=== PATIENT | male | born 1980 | race Caucasian/White ===

== ENCOUNTER → 2019-01-25 22:19 | Outpatient (CLI) | payer BC, OTHER, SELFPAY ==
[2019-01-25 16:39] VITALS: BMI 29.5
[2019-01-25 23:20] LABS: Rheumatoid Factor < 10.0 IU/mL (<15); Thyroid Stim Hormone (TSH) 1.51 uIU/mL (0.358-3.74)
[2019-02-01 03:06] LABS: Beef <0.10 kU/L (Class 0); Chocolate 0.31 kU/L (Class 0/I); Corn 1.89 kU/L (Class III); Egg, Whole <0.10 kU/L (Class 0); Milk (Cow) <0.10 kU/L (Class 0); Peanut 2.27 kU/L (Class III); Pork <0.10 kU/L (Class 0); Soybean 2.04 kU/L (Class III); Wheat 1.98 kU/L (Class III)
[2019-02-01 11:09] LABS: ANTINUCLEAR ANTIBODIES DIRECT Negative (Negative)
== END ==
PROVIDERS: Visit Provider Nurse Practitioner
DX: L40.9 Psoriasis, unspecified (principal); B35.3 Tinea pedis; K90.49 Malabsorption due to intolerance, not elsewhere classified
CPT/HCPCS: 84443; 86003; 86005; 86038; 86225; 86235; 86431

== ENCOUNTER → 2019-12-04 | Outpatient (CLI) | payer BC, OTHER, SELFPAY ==
[2019-12-04 14:13] VITALS: BMI 29.5
[2019-12-08 11:33] LABS: Testosterone Free 17.6 pg/mL (6.8-21.5)
== END | disposition home or self-care (01) ==
PROVIDERS: Referring Provider Nurse Practitioner; Visit Provider Nurse Practitioner
DX: R79.89 Other specified abnormal findings of blood chemistry (principal)
CPT/HCPCS: 84402

== ENCOUNTER → 2024-02-11 | Outpatient (CLI) | payer BC, OTHER, SELFPAY | END | disposition home or self-care (01) | PROVIDERS: Referring Provider Nurse Practitioner; Visit Provider Nurse Practitioner | DX: N30.90 Cystitis, unspecified without hematuria (principal) | CPT/HCPCS: 87086 ==